=== PATIENT | female | born 1940 | race Caucasian/White ===

== ENCOUNTER → 2017-01-22 | Outpatient (CLI) | payer MEDICARE, OTHER ==
--- NOTE | 2017-01-22 15:34 | REP ---
RIGHT KNEE, FIVE VIEWS: HISTORY: Pain. There is narrowing of the joint spaces. Osteophytes are present on the patella. Calcification is present adjacent to the medial femoral condyle. This represents ligamentous or tendon calcification. IMPRESSION: Degenerative change as described above. Signed by Phu Gudino MD 01/22/2017 03:35 P
== END ==
LOC: M WUC 14:47
PROVIDERS: ATTEND Nurse Practitioner Family
DX: M25.561 Pain in right knee (principal)

== ENCOUNTER → 2017-02-28 | Outpatient (CLI) | payer MEDICARE, OTHER ==
--- NOTE | 2017-02-28 14:12 | REPMRS ---
Patient History The patient states she has not had a clinical breast exam in over a year. Patient is postmenopausal. Family history of colorectal cancer in father at age 67, colorectal cancer in paternal grandfather at age 92, and colorectal cancer in mother at age 73. Benign radio exam breast specimen of the left breast, August 12, 2013. Benign localization of breast nodule of the left breast, August 12, 2013. Benign excisional biopsy of the left breast, 1993. Took hormonal contraceptives for 7 years. Digital Mammo Screening Bilat: February 28, 2017 - Exam #: [id number] Bilateral CC and MLO view(s) were taken. Technologist: Delma Macias, Technologist Prior study comparison: November 08, 2015, bilateral digital mammo screening bilat performed at [facility]. January 20, 2015, left breast digital mammo diagnostic unilateral performed at [facility]. FINDINGS: There are scattered fibroglandular densities. There has been no change in the appearance of the mammogram from the prior studies. There is a mild amount of residual fibroglandular tissue which is fairly symmetric. There is no interval development of dominant mass, architectural distortion, or clustered microcalcification suggestive of malignancy. ASSESSMENT: BI-RADS/ACR category 1 mammogram. Negative. Recommendation Routine screening mammogram in 1 year (for women over age 40). This mammogram was interpreted with the aid of an FDA-approved computer-aided dectection system. Electronically Signed By: Alfredo Whitehead MD 02/28/17 [id number]
== END ==
LOC: M RAD 12:00
PROVIDERS: ATTEND Nurse Practitioner Family
DX: Z12.31 Encounter for screening mammogram for malignant neoplasm of breast (principal)

== ENCOUNTER → 2017-12-08 | Day surgery (SDC) | payer MEDICARE, OTHER ==
[~2017-12-08] MED LIST: LIDOCAINE 2% INJ 100 MG/5 ML SDV (FOR ANES.) As Ordered; NS 1,000 ML IV; PROPOFOL 200 MG/20 ML VIAL As Ordered
== END | disposition home or self-care (01) ==
LOC: M OPP 09:10
DX: Z12.11 Encounter for screening for malignant neoplasm of colon (principal); Z80.0 Family history of malignant neoplasm of digestive organs; K64.0 First degree hemorrhoids; K57.30 Diverticulosis of large intestine without perforation or abscess without bleeding; Z87.891 Personal history of nicotine dependence; Z83.71 Family history of colonic polyps
CPT/HCPCS: G0105

== ENCOUNTER → 2018-11-06 | Outpatient (CLI) | payer MEDICARE, OTHER ==
[~2018-11-06] MED LIST changes: +EXCETAB80 PO; -LIDOCAINE 2% INJ 100 MG/5 ML SDV (FOR ANES.) As Ordered; +MULT1TAB10 PO; -NS 1,000 ML IV; -PROPOFOL 200 MG/20 ML VIAL As Ordered; +VITA100067 PO
--- NOTE | 2018-11-06 14:58 | REPMRS ---
Patient History The patient states she had a clinical breast exam in August 2018. Family history of colorectal cancer at age 73 in mother, colorectal cancer at age 92 in paternal grandfather, colorectal cancer at age 67 in father. Benign radio exam breast specimen of the left breast, August 12, 2013. Benign localization of breast nodule of the left breast, August 12, 2013. Benign excisional biopsy of the left breast, 1993. Took hormonal contraceptives for 7 years. Digital Mammo Screening Bilat: November 06, 2018 - Exam #: [id number] Bilateral CC and MLO view(s) were taken. Technologist: Delma Macias, Technologist Prior study comparison: February 28, 2017, bilateral digital mammo screening bilat performed at [facility]. November 08, 2015, bilateral digital mammo screening bilat performed at [facility]. January 20, 2015, left breast digital mammo diagnostic unilateral performed at [facility]. December 07, 2013, left breast digital mammo diagnostic unilateral performed at [facility]. FINDINGS: There are scattered fibroglandular densities. There has been no change in the appearance of the mammogram from the prior studies. There is a mild amount of scattered fibroglandular density which is fairly symmetric. There is no interval development of dominant mass, architectural distortion, or clustered microcalcification suggestive of malignancy. 3-D tomosynthesis shows no additional findings. Assessment: BI-RADS/ACR category 1 mammogram. Negative. Recommendation Routine screening mammogram of both breasts in 1 year (for women over age 40). This patient's Lifetime Breast Cancer RIsk is estimated at 2.4 %. This mammogram was interpreted with the aid of an FDA-approved computer-aided dectection system. Electronically Signed By: Jd Camara MD 11/06/18 [id number]
== END ==
LOC: M RAD 13:34
PROVIDERS: ATTEND Nurse Practitioner Family
DX: Z12.31 Encounter for screening mammogram for malignant neoplasm of breast (principal)

== ENCOUNTER → 2018-11-09 | Outpatient (CLI) | payer MEDICARE, OTHER ==
--- NOTE | 2018-11-09 15:04 | REP ---
Chest two views HISTORY: The Medical examination Comparison: None The lungs are clear. The heart is normal in size. The pulmonary vasculature is normal in appearance. The bony structure is intact. IMPRESSION: No acute disease. Electronically Signed by Phu Gudino MD 11/09/2018 02:56 P
[2018-11-09 17:00] LABS: BILIRUBIN,TOTAL 0.3 MG/DL (0.2-1.0); CALCIUM LEVEL 9.6 MG/DL (8.8-10.2); CREATININE FOR GFR 0.98 MG/DL (0.55-1.30); GLOMERULAR FILTRATION RATE 58.7 (>39); TOTAL PROTEIN 6.6 GM/DL (6.4-8.2)
[2018-11-09 17:09] LABS: BASO % 0.3 % (0.0-1.0); EOS # 0.1 10^3/uL (0.0-0.50); EOS % 1.2 % (0.0-3.0); HEMATOCRIT 41.6 % (36.0-47.0); HEMOGLOBIN 13.7 g/dl (12.0-15.5); LYMPH # 3.7 10^3/uL (1.5-4.5); MEAN CORPUSCULAR HEMOGLOBIN 31.3 pg (27.0-33.0); MEAN CORPUSCULAR HGB CONC 32.9 g/dl (32.0-36.5); MONO # 0.7 10^3/uL (0.0-0.8); MONO % 7.5 % (0.0-5.0); NEUTROPHILS # 4.5 10^3/uL (1.8-7.7); NEUTROPHILS % 49.8 % (36.0-66.0); PLATELET COUNT, AUTOMATED 304 10^3/uL (150-450); RED BLOOD COUNT 4.38 10^6/uL (4.00-5.40); WHITE BLOOD COUNT 9.1 10^3/uL (4.0-10.0)
== END ==
LOC: M WUC 13:46
PROVIDERS: ATTEND Nurse Practitioner Family
DX: Z00.00 Encounter for general adult medical examination without abnormal findings (principal)

== ENCOUNTER → 2020-01-06 | Outpatient (CLI) | payer MEDICARE, OTHER ==
--- NOTE | 2020-01-11 15:07 | DEXA ---
AP SPINE L1 - L4 1.089 -0.8 0.9 LT FEMUR TOTAL 0.895 -0.9 1.0 LT NECK 0.853 -1.3 0.7 RT FEMUR TOTAL 0.940 -0.5 1.3 RT NECK 0.894 -1.0 1.0 TOTAL BODY TOTAL OTHER COMMENTS: Normal bone densitometry of the spine. There is low bone density of the hips. The density of the spine is increased 15.7% since the initial exam on 12/28/2001. The spine density has increased 7.9% since the most recent exam on 06/29/2013. The density of the left hip has decreased 2.4% since the initial exam on 12/28/2001. The density of the left hip has decreased 5.7% since the most recent exam on 06/29/2013. The density of the right hip has increased 3.1% since the initial exam on 12/28/2001. The density of the right hip has decreased 3.5% since the most recent exam on 06/29/2013. FOLLOW-UP: Recommendation for the next bone density exam: 2 years. MARTHA
== END ==
LOC: M WHC 11:17
PROVIDERS: ATTEND Family Medicine
DX: M85.88 Other specified disorders of bone density and structure, other site (principal)

== ENCOUNTER → 2020-04-28 | Outpatient (REF) | payer MEDICARE, OTHER ==
[~2020-04-28] MED LIST changes: +DOCU100C16 PO; +FERR325T3 PO; +PERCOCET PO; +PROT1TAB2 PO; +SUCR1SS PO
== END ==
LOC: M LAB REF 12:09
PROVIDERS: ATTEND Nurse Practitioner Family
DX: R30.0 Dysuria (principal)

== ENCOUNTER 2020-04-30 15:15 | Emergency (ER) | payer MEDICARE, OTHER ==
[~2020-04-30] VITALS: Ht 152.4 cm; Wt 63.4 kg
[~2020-04-30 15:15] MED LIST changes: -PROT1TAB2 PO; -SUCR1SS PO
[2020-04-30] MEDS ORDERED: NS 1,000 ML IV SCH (15:33)
[2020-04-30] MEDS ORDERED: METOCLOPRAMIDE INJ 10MG/2ML VIAL (J2765 PER 1) IV ONE (15:45)
[2020-04-30] MEDS ORDERED: ISOVUE-370 76% 100ML VIAL As Ordered ONE (15:54)
[2020-04-30 15:56] LABS: BASO % 0.2 % (0.0-1.0); EOS % 0.1 % (0.0-3.0); HEMATOCRIT 34.4 % (36.0-47.0); HEMOGLOBIN 11.2 g/dl (12.0-15.5); LYMPH # 1.7 10^3/uL (1.5-5.0); LYMPH % 18.4 % (24.0-44.0); MEAN CORPUSCULAR HGB CONC 32.6 g/dl (32.0-36.5); MEAN CORPUSCULAR VOLUME 95.3 fl (80.0-96.0); MONO # 0.5 10^3/uL (0.0-0.8); MONO % 5.3 % (0.0-5.0); NEUTROPHILS # 7.1 10^3/uL (1.5-8.5); NEUTROPHILS % 75.7 % (36.0-66.0); PLATELET COUNT, AUTOMATED 437 10^3/uL (150-450); RED BLOOD COUNT 3.61 10^6/uL (4.00-5.40); WHITE BLOOD COUNT 9.4 10^3/uL (4.0-10.0)
--- NOTE | 2020-04-30 16:20 | REP ---
Clinical: Abdominal pain. Technique: Axial contrast enhanced images from the lung bases to the pubic symphysis with coronal and sagittal re-formations using 100 ml Isovue 370 intravenous contrast material. Findings: Lung bases are clear. Visualized heart and pericardium normal. Liver, spleen, pancreas, gallbladder, and bilateral adrenal glands are normal. Kidneys demonstrate age-related cortical thinning along with bilateral simple cysts. There is a round lesion along the posterior cortex of the right kidney measuring 2.3 cm diameter and displaying soft tissue density suspicious for mass versus proteinaceous cyst. Mucosal thickening involving the duodenum with subtle surrounding fatty infiltration suggests duodenitis and correlation is recommended. Remainder of the small and large bowel is without obstruction or acute inflammatory process. No free air. No free fluid. Pelvis demonstrates normal bladder and age-appropriate uterus/adnexa. No ascites. No adenopathy. Abdominal aorta without aneurysm or dissection. Musculoskeletal structures are intact. Impression: 1. Findings suggesting duodenitis and correlation is recommended. 2. Bilateral renal cysts. 3. 2.3 cm soft tissue dense right renal lesion. Differential diagnosis includes complex proteinaceous cyst and mass. Correlation with ultrasound may be warranted. Electronically Signed by Conrad Emanuel MD 04/30/2020 04:12 P
[2020-04-30 16:22] LABS: ALT/SGPT 19 U/L (12-78); BILIRUBIN,DIRECT < 0.1 MG/DL (0.0-0.2); BILIRUBIN,TOTAL 0.3 MG/DL (0.2-1.0); LIPASE 185 U/L (73-393); TOTAL PROTEIN 7.1 GM/DL (6.4-8.2)
[2020-04-30] MEDS ORDERED: PROT1TAB2 PO (16:29)
[2020-04-30] MEDS ORDERED: SUCR1SS PO (16:29)
[2020-04-30] MEDS ORDERED: PANTOPRAZOLE 40MG VIAL (C9113 PER 1) IV ONE (16:30)
[2020-04-30] MEDS ORDERED: SUCRALFATE SUSP 1GM/10ML UD PO ONE (16:30)
[2020-04-30 17:22] VITALS: BP 168/77
--- NOTE | 2020-05-01 08:21 | ECGEPIP ---
[facility] - ED Test Date: 2020-04-30 Pat Name: BELEN DARBY Department: Room: - Gender: Female Feather Baler: RADHA : 1940 Requested By: Samantha Linn Order Number: [id number] Reading MD: Elder Wallace Measurements Intervals [place] Rate: 81 P: 79 [place]: 142 QRS: 36 QRSD: 93 T: 40 QT: 378 QTc: 439 Interpretive Statements SINUS RHYTHM WITH SINUS ARRHYTHMIA NO PRIORS FOR COMPARISON Electronically Signed on 05-01-2020 8:21:23 EDT by Elder Wallace
--- NOTE | 2020-06-29 07:38 | ED PDOC ---
Post-Departure Follow-Up radiology report faxed to Samantha Alfaro MD Jun 29, 2020 07:38
== END 2020-04-30 18:03 | disposition home or self-care (01) ==
LOC: M ED 15:15
DX: K29.80 Duodenitis without bleeding (principal); N28.9 Disorder of kidney and ureter, unspecified; I10 Essential (primary) hypertension; E78.5 Hyperlipidemia, unspecified; Z79.899 Other long term (current) drug therapy; Z80.0 Family history of malignant neoplasm of digestive organs; Z87.891 Personal history of nicotine dependence
CPT/HCPCS: 36415; 74021; 74177; 80047; 80053; 83690; 85025; 93005; 96361; 96374; 96375; 99284; C9113; J2765; Q9967

== ENCOUNTER → 2020-04-30 | Outpatient (CLI) | payer MEDICARE, OTHER ==
[~2020-04-30] MED LIST changes: -DOCU100C16 PO; -FERR325T3 PO; -PERCOCET PO
--- NOTE | 2020-04-30 15:08 | REP ---
Clinical: Epigastric and abdominal pain. Technique: Upright view of the chest with supine and upright views of the abdomen and pelvis. Findings: Frontal upright view of the chest demonstrates no acute cardiopulmonary process or free air below the diaphragm to suspect pneumoperitoneum. Supine and upright views of the abdomen and pelvis demonstrate nonspecific bowel gas pattern without obstruction or perforation. No organomegaly. Skeletal structures normal for age. Impression: Nonspecific bowel gas pattern. Electronically Signed by Conrad Emanuel MD 04/30/2020 02:59 P
[2020-04-30 17:26] LABS: BASO % 0.2 % (0.0-1.0); EOS % 0.2 % (0.0-3.0); HEMATOCRIT 35.3 % (36.0-47.0); HEMOGLOBIN 11.4 g/dl (12.0-15.5); LYMPH # 2.7 10^3/uL (1.5-5.0); LYMPH % 23.7 % (24.0-44.0); MEAN CORPUSCULAR HEMOGLOBIN 31.5 pg (27.0-33.0); MEAN CORPUSCULAR HGB CONC 32.3 g/dl (32.0-36.5); MEAN CORPUSCULAR VOLUME 97.5 fl (80.0-96.0); MONO # 0.7 10^3/uL (0.0-0.8); MONO % 5.8 % (0.0-5.0); NEUTROPHILS % 69.9 % (36.0-66.0); PLATELET COUNT, AUTOMATED 507 10^3/uL (150-450); RED BLOOD COUNT 3.62 10^6/uL (4.00-5.40); WHITE BLOOD COUNT 11.4 10^3/uL (4.0-10.0)
[2020-04-30 17:34] LABS: ALBUMIN 4.2 GM/DL (3.2-5.2); ALT/SGPT 19 U/L (12-78); BILIRUBIN,TOTAL 0.3 MG/DL (0.2-1.0); BLOOD UREA NITROGEN 8 MG/DL (7-18); CALCIUM LEVEL 9.8 MG/DL (8.8-10.2); CARBON DIOXIDE LEVEL 28 MEQ/L (21-32); CHLORIDE LEVEL 102 MEQ/L (98-107); CREATININE FOR GFR 0.94 MG/DL (0.55-1.30); GLOMERULAR FILTRATION RATE > 60.0 (>39); GLUCOSE, FASTING 125 MG/DL (70-100); POTASSIUM SERUM 3.9 MEQ/L (3.5-5.1); SODIUM LEVEL 135 MEQ/L (136-145); TOTAL PROTEIN 7.4 GM/DL (6.4-8.2)
== END ==
LOC: M WUC 14:30
PROVIDERS: ATTEND Physician Assistant
DX: K59.00 Constipation, unspecified (principal); R11.2 Nausea with vomiting, unspecified

== ENCOUNTER → 2020-05-23 | Outpatient (CLI) | payer MEDICARE, OTHER ==
[~2020-05-23] MED LIST changes: +DOCU100C16 PO; +FERR325T3 PO; +PERCOCET PO; +PROT1TAB2 PO; +SUCR1SS PO
--- NOTE | 2020-07-14 14:45 | REP ---
URINARY TRACT SONOGRAPHY: HISTORY: Renal lesion seen on CT. COMPARISON: No comparison imaging is available. FINDINGS: Renal cortical echogenicity pattern is normal. There is mild bilateral hydronephrosis. Mild proximal hydroureter is seen on the left. There is no evidence of intrarenal calculus. There is a 6.6 x 3.8 x 3.9 cm cyst in the lower pole of the left kidney. The left kidney measures 10.9 x 5.7 x 4.0 cm exclusive of this. Right renal dimensions are 9.3 x 4.9 x 4.0 cm. There is a peripheral hypoechoic mass projecting from the upper pole of the right kidney anteriorly measuring 2.4 x 2.1 x 1.5 cm, which must be considered suspicious. IMPRESSION: 6.6 cm cyst lower pole left kidney. Mild bilateral hydronephrosis. There is a 2.4 cm solid hypoechoic peripheral mass in the upper pole of the right kidney suspicious for renal cell carcinoma. MTDD
== END ==
LOC: M PLAIMG 06:44
PROVIDERS: ATTEND Nurse Practitioner Family
DX: N28.1 Cyst of kidney, acquired (principal)

== ENCOUNTER → 2020-06-07 | Outpatient (CLI) | payer MEDICARE, OTHER ==
[2020-07-10 11:38] LABS: HEMATOCRIT 34.3 % (36.0-47.0); HEMOGLOBIN 10.6 g/dl (12.0-15.5); MEAN CORPUSCULAR HEMOGLOBIN 29.6 pg (27.0-33.0); MEAN CORPUSCULAR HGB CONC 30.9 g/dl (32.0-36.5); MEAN CORPUSCULAR VOLUME 95.8 fl (80.0-96.0); PLATELET COUNT, AUTOMATED 332 10^3/uL (150-450); RED BLOOD COUNT 3.58 10^6/uL (4.00-5.40); WHITE BLOOD COUNT 7.1 10^3/uL (4.0-10.0)
[2020-07-10 11:43] LABS: INR 0.93; PARTIAL THROMBOPLASTIN TIME 28.7 SECONDS (25.0-38.4); PROTHROMBIN TIME 12.7 SECONDS (11.8-14.0)
--- NOTE | 2020-07-21 07:57 | REP ---
CHEST TWO VIEWS HISTORY: Renal mass. COMPARISON: 11/09/2018. TECHNIQUE: Two views of the chest were performed and compared to prior study of 11/09/2018. FINDINGS: There is no acute infiltrate. Lungs are clear and unchanged. Heart is normal in size. There is some tortuosity of the thoracic aorta. Mediastinal silhouette is unchanged. There are mild degenerative changes of the spine. IMPRESSION: No active pulmonary disease. MTDD
[2020-07-23 11:00] LABS: BLOOD UREA NITROGEN 17 MG/DL (7-18); CALCIUM LEVEL 9.1 MG/DL (8.8-10.2); CARBON DIOXIDE LEVEL 25 MEQ/L (21-32); CHLORIDE LEVEL 114 MEQ/L (98-107); CREATININE FOR GFR 0.86 MG/DL (0.55-1.30); GLOMERULAR FILTRATION RATE > 60.0 (>39); GLUCOSE, FASTING 94 MG/DL (70-100); POTASSIUM SERUM 4.3 MEQ/L (3.5-5.1); SODIUM LEVEL 144 MEQ/L (136-145)
== END ==
LOC: M RAD 09:24
PROVIDERS: ATTEND Nurse Practitioner Family
DX: Z01.818 Encounter for other preprocedural examination (principal); N28.9 Disorder of kidney and ureter, unspecified; Z79.899 Other long term (current) drug therapy

== ENCOUNTER → 2020-06-15 | Outpatient (CLI) | payer MEDICARE, OTHER | LOC: M LABSMTC 10:40 | PROVIDERS: ATTEND Anesthesiology | DX: Z01.812 Encounter for preprocedural laboratory examination (principal); Z20.828 Contact with and (suspected) exposure to other viral communicable diseases ==

== ENCOUNTER 2020-06-20 11:09 | Inpatient (IN) | payer MEDICARE, OTHER ==
[~2020-06-20] VITALS: Ht 152.4 cm; Wt 63.0 kg
[~2020-06-20 11:09] MED LIST changes: -DOCU100C16 PO; -FERR325T3 PO; +HYDROmorphone HCL 2 MG/ML 1ML VIAL (J1170) As Ordered ONE; +LIDOCAINE 2% 100MG/5ML SDV (FOR ANES.) As Ordered ONE; +MIDAZOLAM INJ 2MG/2ML VIAL (J2250 PER 1MG) As Ordered ONE; +ONDANSETRON 4MG/2ML VIAL As Ordered ONE; -PERCOCET PO; +ROCURONIUM BROMIDE 50 MG/5 ML VIAL As Ordered ONE; +dexameTHASONE 4 MG/ML 1ML VIAL (J1100 PER 1MG) As Ordered ONE; +fentaNYL 100 MCG/2 ML INJECTION (J3010) As Ordered ONE; +propofoL 200 MG/20 ML VIAL As Ordered ONE
[2020-06-20] MEDS ORDERED: ceFAZolin 2 GM/D5W 50 ML IV BAG (J0690 PER 500MG) As Ordered ONE (11:22)
[2020-06-20] MEDS ORDERED: BUPIVACAINE HCL 0.25% 30ML VIAL As Ordered ONE (12:37)
[2020-06-20] MEDS ORDERED: LIDOCAINE 1% SDV 30ML VIAL As Ordered ONE (12:37)
[2020-06-20] MEDS ORDERED: PHENYLephrine HCL 500 MCG/5 ML (100MCG/ML) SYRINGE (J2370) As Ordered ONE (13:23)
[2020-06-20] MEDS ORDERED: ACETAMINOPHEN 1000MG 100ML IV BTL (OFIRMEV) (J0131 PER 10MG) As Ordered ONE (13:25)
[2020-06-20] MEDS ORDERED: ROCURONIUM BROMIDE 50 MG/5 ML VIAL As Ordered ONE ×2 (13:44→14:42)
[2020-06-20] MEDS ORDERED: ceFAZolin 2 GM/D5W 50 ML IV BAG (J0690 PER 500MG) IV ONE (13:50)
[2020-06-20] MEDS ORDERED: MANNITOL 25% 12.5 GM/50 ML VIAL (J2150) As Ordered ONE (13:57)
[2020-06-20] MEDS ORDERED: SUGAMMADEX SODIUM 500 MG/5 ML VIAL (BRIDION) As Ordered ONE (15:58)
[2020-06-20] MEDS: oxyCODONE 5MG TAB PO PRN ×2 (16:57→17:40)
[2020-06-20] MEDS: fentaNYL 100 MCG/2 ML INJECTION (J3010) IV PRN ×4 (16:57→17:14)
[2020-06-20] MEDS ORDERED: oxyCODONE 5MG TAB As Ordered ONE (16:58)
[2020-06-20] MEDS ORDERED: ONDANSETRON 4MG/2ML VIAL As Ordered ONE ×2 (16:58→20:05)
[2020-06-20] MEDS ORDERED: fentaNYL 100 MCG/2 ML INJECTION (J3010) As Ordered ONE (16:58)
[2020-06-20] MEDS ORDERED: NS 1,000 ML IV SCH (17:00)
[2020-06-20] MEDS ORDERED: LR 1,000 ML IV SCH (17:00)
[2020-06-20] MEDS ORDERED: ONDANSETRON 4MG/2ML VIAL IV PRN (17:00)
[2020-06-20] MEDS ORDERED: ACETAMINOPHEN TAB 650MG DOSE (2X325MG) PO PRN (17:00)
[2020-06-20] MEDS ORDERED: PERCOCET 5MG/325MG TAB PO PRN (17:00)
[2020-06-20] MEDS ORDERED: HYDROMORPHONE HCL 0.5 MG/ 0.5 ML SYRINGE (J1170 PER 1) As Ordered ONE ×2 (17:16→17:32)
[2020-06-20] MEDS: HYDROMORPHONE HCL 0.5 MG/ 0.5 ML SYRINGE (J1170 PER 1) IV PRN ×4 (17:16→17:38)
--- NOTE | 2020-06-20 17:43 | ROOPDOC ---
[facility] Report Of Operation Report of Operation DATE OF PROCEDURE: 06/20/20 PREPROCEDURE DIAGNOSES: Right Renal Neoplasm. POSTPROCEDURE DIAGNOSES: Right Renal Neoplasm. PROCEDURE: Right Robotic-assisted Laparoscopic Partial Nephrectomy with Intraoperative Ultrasound for Tumor Mapping. SURGEON: Eran Mac MD CHEESE COOK: Alysa Quinn NP ANESTHESIA: General OPERATIVE INDICATIONS: This is a 79 year old female with a 2.5cm enhancing solid right renal neoplasm concerning for malignancy. She was brought to the operating room today for treatment. DESCRIPTION OF PROCEDURE: The patient was brought to the operating room and general anesthesia was induced. Prophylactic antibiotics were infused. A Martin catheter was placed under sterile conditions. The patient was then placed in the left lateral decubitus position. All pressure points were appropriately padded and an axillary roll was placed. She was secured to the table with tape. The patient was then prepped and draped in the usual sterile fashion. The initial incision was for an 8mm port in line with the 11th rib along the lateral rectus margin. A Veress needle was then utilized to achieve the pneumoperitoneum. An 8mm port was then placed in through this incision and through which the camera was inserted. There were no injuries from Veress needle placement or initial trocar placement. The remaining ports were then placed under vision. The right hand robotic port was placed along the costal margin in line with the camera port. A 5 mm port was placed just inferior to the xyphoid for access for a liver retractor. Two left robotic ports were placed with one just inferior to the camera port, and the other between the anterior-superior iliac spine and the umbilicus. A 12mm assistant laboratory director port was placed in between the camera port and the more cephalad left hand robotic port. The robot was then docked. We started by lifting up the liver with a laparoscopic locking Allis clamp. The patient's liver was very large and completely covered the kidney. A moderate amount of adhesions were released between the liver and Gerota's fascia prior to us being able to retract the l iver. Once done the IVC was readily seen. A plane was made onto the lateral aspect of the IVC and this was carried cephalad until the right renal vein was encountered. This was carefully dissected and just inferior to the renal vein, the right renal artery was identified. It was then carefully dissected. Next I had our locomotive observer administer 12.5g of mannitol. Gerota's fascia was then opened and I defatted the kidney. On the lateral and mid aspect of the kidney the tumor was seen. It was mostly exophytic. Ultrasound was then utilized to evangelina the boundaries of the mass. Next 2 bulldog clamps were placed on the renal artery and we began resecting the mass. The mass was resected completely and it appeared that we had a good margin. Once the mass was removed, the renorrhaphy was performed first by ligating all vessels in the base of resection with 2-0 vicryl sutures using figure of eight stitches. The capsule of the kidney was then reapproximated using 0-vicryl suture with Weck clips to cinch down the suture. Once this was done the clamps were removed and hemostasis was excellent. The warm ischemia time was 28 minutes. Next Radha was applied to the resection bed and the tumor was placed in an endocatch bag. A Chris Newman drain was positioned just medial to the kidney. The liver retractor was then removed and the robot was undocked after confirming hemostasis within the abdomen. The assi stant port was then extended at the skin level and then at the fascia. The specimen was then removed in the endocatch bag. A Gaurav-Marychuy fascial closure device was utilized to place #0 Vicryl free ties through the fascia of the assistant laboratory director port site. This suture was then tied down. At this point, the abdomen was reinsufflated and we looked back in with the camera and there was no bleeding. At this point, all the incisions were thoroughly irrigated. We then closed the skin of each site using a running #4-0 subcuticular Monocryl stitch. The Chris Newman drain was secured to the skin using #3-0 Ethilon suture. Local anesthetic was then applied to each incision and Dermabond was then applied and this marked the conclusion of the procedure. The patient was then taken out of the left lateral decubitus position, awakened from anesthesia and transported to the recovery room in stable condition. ESTIMATED BLOOD LOSS: 350mL INTRAOPERATIVE COMPLICATIONS: None SPECIMENS: Right renal neoplasm WARM ISCHEMIA TIME: 28 minutes NORMAL RIGHT RENAL PARENCHYMA SPARED: 95% PLAN: The patient will be admitted to the hospital postoperatively and she will be discharged home once her renal function is stable and she is tolerating a regular diet. ERAN MAC MD Jun 20, 2020 17:43
[2020-06-20 19:16] LABS: HEMATOCRIT 29.3 % (36.0-47.0); HEMOGLOBIN 9.2 g/dl (12.0-15.5); MEAN CORPUSCULAR HEMOGLOBIN 28.5 pg (27.0-33.0); MEAN CORPUSCULAR HGB CONC 31.4 g/dl (32.0-36.5); MEAN CORPUSCULAR VOLUME 90.7 fl (80.0-96.0); PLATELET COUNT, AUTOMATED 299 10^3/uL (150-450); RED BLOOD COUNT 3.23 10^6/uL (4.00-5.40); WHITE BLOOD COUNT 11.9 10^3/uL (4.0-10.0)
[2020-06-20 19:49] LABS: BLOOD UREA NITROGEN 14 MG/DL (7-18); CALCIUM LEVEL 8.5 MG/DL (8.8-10.2); CARBON DIOXIDE LEVEL 24 MEQ/L (21-32); CHLORIDE LEVEL 113 MEQ/L (98-107); CREATININE FOR GFR 0.83 MG/DL (0.55-1.30); GLOMERULAR FILTRATION RATE > 60.0 (>39); GLUCOSE, FASTING 166 MG/DL (70-100); POTASSIUM SERUM 3.8 MEQ/L (3.5-5.1); SODIUM LEVEL 144 MEQ/L (136-145)
[2020-06-20] MEDS: ONDANSETRON 4MG/2ML VIAL IV PRN (20:01)
[2020-06-20 20:15] VITALS: BP 122/61
[2020-06-20 20:45] VITALS: BP 122/62
[2020-06-20] MEDS: DOCUSATE SODIUM 100 MG CAP PO SCH (20:57)
[2020-06-20] MEDS: ceFAZolin SOD 1 GM in D5W MINI-BAG PLUS 50 ML IV SCH (20:58)
[2020-06-20 21:45] VITALS: BP 123/63
[2020-06-20 22:15] VITALS: BP 110/68
[2020-06-20] MEDS: MORPHINE 2 MG/ML 1ML VIAL (J2270) IV PRN (23:35)
[2020-06-21 00:15] VITALS: BP 118/64
[2020-06-21] MEDS: PERCOCET 5MG/325MG TAB PO PRN ×5 (01:23→21:17)
[2020-06-21] MEDS: ceFAZolin SOD 1 GM in D5W MINI-BAG PLUS 50 ML IV SCH (04:29)
[2020-06-21 06:00] VITALS: BP 119/60
[2020-06-21 07:45] LABS: HEMATOCRIT 26.5 % (36.0-47.0); HEMOGLOBIN 8.1 g/dl (12.0-15.5); MEAN CORPUSCULAR HEMOGLOBIN 27.9 pg (27.0-33.0); MEAN CORPUSCULAR HGB CONC 30.6 g/dl (32.0-36.5); MEAN CORPUSCULAR VOLUME 91.4 fl (80.0-96.0); PLATELET COUNT, AUTOMATED 258 10^3/uL (150-450); WHITE BLOOD COUNT 9.9 10^3/uL (4.0-10.0)
[2020-06-21] MEDS: ONDANSETRON 4MG/2ML VIAL IV PRN (07:54)
[2020-06-21 08:02] LABS: CALCIUM LEVEL 8.1 MG/DL (8.8-10.2); CREATININE FOR GFR 1.01 MG/DL (0.55-1.30); GLOMERULAR FILTRATION RATE 56.6 (>39); POTASSIUM SERUM 4.3 MEQ/L (3.5-5.1)
--- NOTE | 2020-06-21 08:38 | IPNPDOC ---
Subjective Review oF Systems Chief Complaint The patient is a 79-year-old female admitted with a reason for visit of Renal Mass. Events since Last Encounter No acute events o/n. Good pain control. Patient having some nausea this morning but no emesis. Has not ambulated yet. No f/c/ns. Objective Physical Examination General Exam: Alert, Cooperative, No Acute Distress ABDOMEN EXAM: Soft, Tenderness (mild), Other (incisions clean/dry/intact; BENEDICT w/ serosanguinous output) Skin Exam: Nl turgor and temperature Neuro Exam: Normal Speech Psych Exam: Mental status NL, Mood NL Other physical findings catheter draining clear urine Vital Signs/I&O Vital Signs Date Time Temp Pulse Resp B/P (MAP) Pulse Ox O2 Delivery O2 Flow Rate FiO2 06/21/20 06:29 17 98 Nasal Cannula 1.0 06/21/20 06:00 98.5 79 119/60 (79) I&O- Last 24 Hours up to 6 AM 06/21/20 06:00 Intake Total 2670 ml Output Total 1360 ml Balance 1310 ml Laboratory Data Labs 24H Laboratory Tests 2 06/20/20 15:07: Nucleated Red Blood Cells % (auto) 0.0, Anion Gap 7L, Glomerular Filtration Rate > 60.0, Calcium Level 8.5L 06/21/20 06:39: Nucleated Red Blood Cells % (auto) 0.0, Anion Gap 5L, Glomerular Filtration Rate 56.6, Calcium Level 8.1L CBC/BMP Laboratory Tests 06/20/20 15:07 06/21/20 06:39 Assessment/Plan Date Seen The patient was seen on 06/21/20. Patient Summary This is a 79 y/o F POD1 s/p R robotic partial nephrectomy. Doing well. Hb 8.1. Cr 1. Good UOP. Normal BENEDICT output. Plan/VTE VTE Prophylaxis Ordered?: Yes VTE Exclusion Mechanical Proph: N/A:VTE Prophy Ordered Plan/Urinary Catheter Urinary Catheter: D/C Martin Plan - d/c Martin once patient is ambulating - d/c IVF once nausea improved - zofran prn nausea - strict I/Os - percocet prn pain - recheck Hb at noon - may need PRBC transfusion if Hb drops into 7s (patient was anemic at baseline) - SCDs when in bed - ambulate as tolerated - incentive spirometry - advance diet as tolerated - anticipate discharge tomorrow ERAN MAC MD Jun 21, 2020 08:38
[2020-06-21] MEDS: DOCUSATE SODIUM 100 MG CAP PO SCH ×2 (09:33→21:16)
[2020-06-21] MEDS: MORPHINE 2 MG/ML 1ML VIAL (J2270) IV PRN (09:34)
[2020-06-21 10:00] VITALS: BP 124/63
[2020-06-21 14:00] VITALS: BP 124/63
[2020-06-21 18:00] VITALS: BP 130/70
[2020-06-21 22:00] VITALS: BP 149/79
[2020-06-22 02:00] VITALS: BP 153/81
[2020-06-22] MEDS: PERCOCET 5MG/325MG TAB PO PRN ×3 (02:29→15:50)
[2020-06-22 06:00] VITALS: BP 141/63
[2020-06-22 06:22] LABS: HEMATOCRIT 28.1 % (36.0-47.0); HEMOGLOBIN 8.6 g/dl (12.0-15.5); MEAN CORPUSCULAR HGB CONC 30.6 g/dl (32.0-36.5); MEAN CORPUSCULAR VOLUME 91.5 fl (80.0-96.0); PLATELET COUNT, AUTOMATED 238 10^3/uL (150-450); RED BLOOD COUNT 3.07 10^6/uL (4.00-5.40); WHITE BLOOD COUNT 10.4 10^3/uL (4.0-10.0)
[2020-06-22 06:51] LABS: BLOOD UREA NITROGEN 9 MG/DL (7-18); CALCIUM LEVEL 8.6 MG/DL (8.8-10.2); CARBON DIOXIDE LEVEL 28 MEQ/L (21-32); CHLORIDE LEVEL 112 MEQ/L (98-107); CREATININE FOR GFR 0.94 MG/DL (0.55-1.30); GLOMERULAR FILTRATION RATE > 60.0 (>39); GLUCOSE, FASTING 105 MG/DL (70-100); POTASSIUM SERUM 4.1 MEQ/L (3.5-5.1); SODIUM LEVEL 144 MEQ/L (136-145)
[2020-06-22] MEDS: DOCUSATE SODIUM 100 MG CAP PO SCH (09:15)
--- NOTE | 2020-06-22 09:43 | IPNPDOC ---
Subjective Review oF Systems Chief Complaint The patient is a 79-year-old female admitted with a reason for visit of Renal Mass. Events since Last Encounter No acute events o/n. Pain much better controlled today. No n/v today. A mbulating ok. No difficulty voiding. No f/c/ns. Objective Physical Examination General Exam: Alert, Cooperative, No Acute Distress ABDOMEN EXAM: Soft, Tenderness (mild), Other (incisions clean/dry/intact; BENEDICT w/ serous output) Skin Exam: Nl turgor and temperature Neuro Exam: Normal Speech Psych Exam: Mental status NL, Mood NL Vital Signs/I&O Vital Signs Date Time Temp Pulse Resp B/P (MAP) Pulse Ox O2 Delivery O2 Flow Rate FiO2 06/22/20 09:17 18 Room Air 06/22/20 06:00 98.5 84 141/63 (89) 94 1.0 I&O- Last 24 Hours up to 6 AM 06/22/20 06:00 Intake Total 1315 ml Output Total 1078 ml Balance 237 ml Laboratory Data Labs 24H Laboratory Tests 2 06/22/20 05:56: Nucleated Red Blood Cells % (auto) 0.0, Anion Gap 4L, Glomerular Filtration Rate > 60.0, Calcium Level 8.6L CBC/BMP Laboratory Tests 06/21/20 11:43 06/22/20 05:56 Assessment/Plan Date Seen The patient was seen on 06/22/20. Patient Summary This is a 79 y/o F POD2 s/p R robotic partial nephrectomy. Doing well. Hb stable at 8.6. Cr 0.9. Good UOP. Normal BENEDICT output. Plan/VTE VTE Prophylaxis Ordered?: Yes VTE Exclusion Mechanical Proph: N/A:VTE Prophy Ordered Plan - wean O2 as tolerated - percocet prn pain - ambulate - SCDs when in bed - incentive spirometry - d/c BENEDICT drain - likely discharge home once weaned off O2 ERAN MAC MD Jun 22, 2020 09:43
[2020-06-22 10:00] VITALS: BP 145/70
[2020-06-22] MEDS ORDERED: FERR325T3 PO (10:09)
[2020-06-22] MEDS ORDERED: PERCOCET PO (10:09)
[2020-06-22] MEDS ORDERED: DOCU100C16 PO (10:09)
[2020-06-22 14:00] VITALS: BP 152/73
--- NOTE | 2020-07-11 12:10 | DSES ---
DATE OF ADMISSION: June 20, 2020 DATE OF DISCHARGE: June 22, 2020 ADMISSION DIAGNOSIS: Right renal neoplasm. DISCHARGE DIAGNOSIS: Right renal cell carcinoma. ADMITTING PHYSICIAN: Blaine De La Garza MD DISCHARGE PHYSICIAN: Blaine De La Garza MD PROCEDURES PERFORMED: Right robotic partial nephrectomy on June 20, 2020. HISTORY OF PRESENT ILLNESS: This is a 79-year-old female who was found to have an enhancing 2.5-cm right renal neoplasm concerning for cancer. She underwent the above listed procedure and was admitted postoperatively. HOSPITALIZATION COURSE: The patient was admitted to the hospital on June 20, 2020 after undergoing the above listed procedure. Her procedure went without any complications. On post op day 1, the patient noted a moderate amount of incisional pain and had nausea and small amounts of vomiting. This improved throughout the day on post op day 1. Her hemoglobin in the morning on post op day 1 had gone down to 8.1 and this was rechecked later that afternoon, and it had gone up some to 8.6. Her vital signs remained stable on post op day 1. Her catheter was removed on post op day 1 and she voided without difficulty. Her serum creatinine on post op day 1 was 1.01. By post op day 2, her pain was much better controlled. She was ambulating better. Her hemoglobin was stable and was 8.6. Her serum creatinine came down to 0.9. She had very good urine output. Of note, there was some difficulty weaning her off of supplemental oxygen. Specifically, when she was starting ambulating, her oxygen saturation would drop into the 80s. This improved on post op day 2. As of post op day 2, her oxygen saturation remained stable in the low 90s on room air while ambulating. At no point was she symptomatic. Since she was doing better on post op day 2, she was deemed ready for discharge to home. Her Chris-Newman drain had normal output and, therefore it was removed on post op day 2. She was discharged to home with a plan for her to follow up in the Urology Clinic in 1-2 weeks for postoperative visit and to discuss her pathology results. MARTHA
== END 2020-06-22 18:15 | disposition home or self-care (01) | DRG 658 ==
LOC: M SDC 11:09 → M MSPAV 20:02 → M SDC 06-21 14:54 → M MSPAV 06-21 14:55 → M SDC 06-22 18:15 → M MSPAV 06-22 18:15
PROVIDERS: ADMIT Urology; ATTEND Urology
PROC: 8E0W4CZ Robotic Assisted Procedure of Trunk Region, Percutaneous Endoscopic Approach (ICD-10-PCS; 2020-06-20)
PROC: 0TB04ZZ Excision of Right Kidney, Percutaneous Endoscopic Approach (ICD-10-PCS; principal; 2020-06-20 13:15)
DX: C64.1 Malignant neoplasm of right kidney, except renal pelvis (principal); R11.10 Vomiting, unspecified; E78.00 Pure hypercholesterolemia, unspecified; Z87.891 Personal history of nicotine dependence; Z85.828 Personal history of other malignant neoplasm of skin; Z79.899 Other long term (current) drug therapy

== ENCOUNTER → 2020-07-11 | Outpatient (CLI) | payer MEDICARE, OTHER ==
[~2020-07-11] MED LIST changes: +DOCU100C16 PO; +FERR325T3 PO; -HYDROmorphone HCL 2 MG/ML 1ML VIAL (J1170) As Ordered ONE; -LIDOCAINE 2% 100MG/5ML SDV (FOR ANES.) As Ordered ONE; -MIDAZOLAM INJ 2MG/2ML VIAL (J2250 PER 1MG) As Ordered ONE; -ONDANSETRON 4MG/2ML VIAL As Ordered ONE; +PERCOCET PO; -ROCURONIUM BROMIDE 50 MG/5 ML VIAL As Ordered ONE; -dexameTHASONE 4 MG/ML 1ML VIAL (J1100 PER 1MG) As Ordered ONE; -fentaNYL 100 MCG/2 ML INJECTION (J3010) As Ordered ONE; -propofoL 200 MG/20 ML VIAL As Ordered ONE
[2020-07-11 13:19] LABS: BLOOD UREA NITROGEN 18 MG/DL (7-18); CALCIUM LEVEL 9.8 MG/DL (8.8-10.2); CARBON DIOXIDE LEVEL 27 MEQ/L (21-32); CHLORIDE LEVEL 111 MEQ/L (98-107); CREATININE FOR GFR 0.95 MG/DL (0.55-1.30); GLOMERULAR FILTRATION RATE > 60.0 (>39); GLUCOSE, FASTING 110 MG/DL (70-100); POTASSIUM SERUM 4.5 MEQ/L (3.5-5.1); SODIUM LEVEL 142 MEQ/L (136-145)
[2020-07-11 13:24] LABS: HEMATOCRIT 34.5 % (36.0-47.0); HEMOGLOBIN 10.4 g/dl (12.0-15.5); MEAN CORPUSCULAR HEMOGLOBIN 27.2 pg (27.0-33.0); MEAN CORPUSCULAR HGB CONC 30.1 g/dl (32.0-36.5); MEAN CORPUSCULAR VOLUME 90.3 fl (80.0-96.0); PLATELET COUNT, AUTOMATED 520 10^3/uL (150-450); RED BLOOD COUNT 3.82 10^6/uL (4.00-5.40); WHITE BLOOD COUNT 7.3 10^3/uL (4.0-10.0)
== END ==
LOC: M PLALAB 10:33
PROVIDERS: ATTEND Urology
DX: C64.9 Malignant neoplasm of unspecified kidney, except renal pelvis (principal)

== ENCOUNTER → 2020-10-11 | Outpatient (CLI) | payer MEDICARE, OTHER ==
[2020-10-11 13:01] LABS: HEMATOCRIT 38.9 % (36.0-47.0); HEMOGLOBIN 11.5 g/dl (12.0-15.5); MEAN CORPUSCULAR HGB CONC 29.6 g/dl (32.0-36.5); PLATELET COUNT, AUTOMATED 316 10^3/uL (150-450); RED BLOOD COUNT 4.42 10^6/uL (4.00-5.40); WHITE BLOOD COUNT 7.3 10^3/uL (4.0-10.0)
[2020-10-11 13:12] LABS: BILIRUBIN,TOTAL 0.2 MG/DL (0.2-1.0); CALCIUM LEVEL 9.8 MG/DL (8.8-10.2); CHOLESTEROL RISK RATIO 4.754 (<5); CREATININE FOR GFR 1.03 MG/DL (0.55-1.30); GLOMERULAR FILTRATION RATE 55.2 (>39); POTASSIUM SERUM 4.6 MEQ/L (3.5-5.1); TOTAL PROTEIN 6.9 GM/DL (6.4-8.2)
[2020-10-11 13:17] LABS: TOTAL 25(OH) VITAMIN D 33.8 NG/ML (30.0-100.0)
== END ==
LOC: M PLALAB 10:39
PROVIDERS: ATTEND Family Medicine
DX: M89.9 Disorder of bone, unspecified (principal)

== ENCOUNTER → 2020-10-11 | Outpatient (CLI) | payer MEDICARE, OTHER ==
--- NOTE | 2020-10-11 13:31 | REPMRS ---
Patient History The patient states she has not had a clinical breast exam in over a year. Family history of colorectal cancer at age 73 in mother, colorectal cancer at age 92 in paternal grandfather, colorectal cancer at age 67 in father. Benign radio exam breast specimen of the left breast, August 12, 2013. Benign localization of breast nodule of the left breast, August 12, 2013. Benign excisional biopsy of the left breast, 1993. Took hormonal contraceptives for 7 years. Digital Woman Screen Mammo: October 11, 2020 - Exam #: [id number] Bilateral CC and MLO view(s) were taken. Technologist: Ginny Root, Technologist Prior study comparison: November 06, 2018, bilateral digital mammo screening bilat, performed at [facility]. February 28, 2017, bilateral digital mammo screening bilat, performed at [facility]. November 08, 2015, bilateral digital mammo screening bilat, performed at [facility]. FINDINGS: There are scattered fibroglandular densities. The Volpara volumetric breast density category is:B. There has been no change in the appearance of the mammogram from the prior studies. There is a mild amount of scattered fibroglandular density which is fairly symmetric. There is no interval development of dominant mass, architectural distortion, or grouped microcalcification suggestive of malignancy. 3-D tomosynthesis shows no additional findings. Assessment: BI-RADS/ACR category 1 mammogram. Negative Mammogram. Recommendation Routine screening mammogram of both breasts in 1 year (for women over age 40). This patient's [facility] Lifetime Breast Cancer Risk is estimated at 1.9 %. This mammogram was interpreted with the aid of an FDA-approved computer-aided dectection system. Electronically Signed By: Jd Camara MD 10/11/20 1969
== END ==
LOC: M WHC 09:53
PROVIDERS: ATTEND Family Medicine
DX: Z12.31 Encounter for screening mammogram for malignant neoplasm of breast (principal); M89.9 Disorder of bone, unspecified; Z80.0 Family history of malignant neoplasm of digestive organs; Z86.018 Personal history of other benign neoplasm; Z92.0 Personal history of contraception; Z79.899 Other long term (current) drug therapy

== ENCOUNTER → 2021-02-28 | Outpatient (CLI) | payer MEDICARE, OTHER ==
[~2021-02-28] MED LIST changes: +ISOVUE-370 76% 100ML VIAL As Ordered ONE
--- NOTE | 2021-02-28 17:32 | REP ---
INDICATION: RENAL CELL CANCER COMPARISON: 07/31/2020. TECHNIQUE: CT Scan of the abdomen was performed with and without intravenous administration of 100 cc of Isovue 370, without oral contrast. Sagittal and coronal reconstruction images are performed. FINDINGS: Lung bases: There are mild bibasilar fibrotic changes. Liver: Normal Gallbladder: Unremarkable. Spleen: Normal. Adrenals: Normal. Pancreas: Normal. Kidneys: There is a new postsurgical defect of the lateral right kidney.. Exophytic cystic structure of the left kidney is unchanged. There is no new renal mass. Small and large bowel: Unremarkable. Free fluid: None. Abdominal aorta: No aneurysm or dissection. Adenopathy: None. Osseous structures: There are degenerative changes of the spine without compression deformity.. IMPRESSION: There has been resection of the previously noted right renal mass. Dominant cystic structure left kidney is again noted unchanged. No new mass or adenopathy. <Electronically signed by Alfredo Whitehead > 02/28/21 [id number]
== END ==
LOC: M RAD 16:35
PROVIDERS: ATTEND Nurse Practitioner Family
DX: C64.9 Malignant neoplasm of unspecified kidney, except renal pelvis (principal)
CPT/HCPCS: 74170; Q9967

== ENCOUNTER → 2021-09-18 | Outpatient (CLI) | payer MEDICARE, OTHER ==
[~2021-09-18] MED LIST changes: -ISOVUE-370 76% 100ML VIAL As Ordered ONE
[2021-09-18 11:47] LABS: HEMATOCRIT 41.9 % (36.0-47.0); HEMOGLOBIN 13.6 g/dl (12.0-15.5); MEAN CORPUSCULAR HEMOGLOBIN 30.9 pg (27.0-33.0); MEAN CORPUSCULAR HGB CONC 32.5 g/dl (32.0-36.5); MEAN CORPUSCULAR VOLUME 95.2 fl (80.0-96.0); PLATELET COUNT, AUTOMATED 224 10^3/uL (150-450); WHITE BLOOD COUNT 7.6 10^3/uL (4.0-10.0)
[2021-09-18 13:07] LABS: ALBUMIN 3.7 GM/DL (3.2-5.2); BILIRUBIN,TOTAL 0.3 MG/DL (0.2-1.0); CALCIUM LEVEL 9.9 MG/DL (8.8-10.2); CHOLESTEROL RISK RATIO 2.86 (<5); CREATININE FOR GFR 1.16 MG/DL (0.55-1.30); POTASSIUM SERUM 4.6 MEQ/L (3.5-5.1); TOTAL PROTEIN 6.4 GM/DL (6.4-8.2)
[2021-09-18 14:04] LABS: TOTAL 25(OH) VITAMIN D 53.4 NG/ML (30.0-100.0)
== END ==
LOC: M PLALAB 09:31
PROVIDERS: ATTEND Family Medicine
DX: Z00.00 Encounter for general adult medical examination without abnormal findings (principal); M89.00 Algoneurodystrophy, unspecified site; Z79.899 Other long term (current) drug therapy

== ENCOUNTER → 2022-01-30 | Outpatient (CLI) | payer MEDICARE ==
[2022-01-30 13:17] LABS: ALBUMIN 3.9 GM/DL (3.2-5.2); ALT/SGPT 43 U/L (12-78); BILIRUBIN,DIRECT 0.2 MG/DL (0.0-0.2); BILIRUBIN,TOTAL 0.5 MG/DL (0.2-1.0); FERRITIN 22 NG/ML (8-252); IRON (FE) 89 UG/DL (50-170); PERCENT SATURATION 25.9 % (13.2-45.0); TOTAL IRON BINDING CAPACITY 343 UG/DL (250-450); TOTAL PROTEIN 6.4 GM/DL (6.4-8.2)
[2022-01-30 13:36] LABS: HEPATITIS B SURFACE ANTIGEN NEGATIVE (NEGATIVE)
[2022-01-30 14:03] LABS: HEPATITIS C VIRUS ABY INDEX 0.2 INDEX (<0.8)
[2022-01-30 14:05] LABS: HEPATITIS B CORE ANTIBODY IGM NEGATIVE (NEGATIVE)
== END ==
LOC: M WUC 10:03
PROVIDERS: ATTEND Family Medicine
DX: R74.02 Elevation of levels of lactic acid dehydrogenase [LDH] (principal); Z79.899 Other long term (current) drug therapy

== ENCOUNTER → 2022-02-18 | Outpatient (CLI) | payer MEDICARE ==
[2022-02-18 13:04] LABS: CALCIUM LEVEL 9.6 MG/DL (8.8-10.2); CREATININE FOR GFR 1.06 MG/DL (0.55-1.30); GLOMERULAR FILTRATION RATE 53.2 (>39); POTASSIUM SERUM 4.3 MEQ/L (3.5-5.1)
== END ==
LOC: M WUC 09:25
PROVIDERS: ATTEND Physician Assistant
DX: C64.9 Malignant neoplasm of unspecified kidney, except renal pelvis (principal)

== ENCOUNTER → 2022-02-25 | Outpatient (CLI) | payer MEDICARE ==
[~2022-02-25] MED LIST changes: +ISOVUE-370 76% 100ML VIAL As Ordered ONE
== END ==
LOC: M RAD 13:39
PROVIDERS: ATTEND Physician Assistant
DX: C64.9 Malignant neoplasm of unspecified kidney, except renal pelvis (principal)
CPT/HCPCS: 74170; Q9967

== ENCOUNTER → 2022-09-23 | Outpatient (CLI) | payer MEDICARE, OTHER ==
[~2022-09-23] MED LIST changes: -ISOVUE-370 76% 100ML VIAL As Ordered ONE
[2022-09-23 17:29] LABS: BASO % 0.5 % (0.0-1.0); EOS # 0.1 10^3/uL (0.0-0.5); EOS % 1.4 % (0.0-3.0); HEMATOCRIT 43.3 % (36.0-47.0); HEMOGLOBIN 13.6 g/dl (12.0-15.5); LYMPH # 3.1 10^3/uL (1.5-5.0); LYMPH % 38.4 % (24.0-44.0); MEAN CORPUSCULAR HEMOGLOBIN 31.1 pg (27.0-33.0); MEAN CORPUSCULAR HGB CONC 31.4 g/dl (32.0-36.5); MEAN CORPUSCULAR VOLUME 99.1 fl (80.0-96.0); MONO # 0.5 10^3/uL (0.0-0.8); MONO % 6.6 % (2.0-8.0); NEUTROPHILS # 4.3 10^3/uL (1.5-8.5); PLATELET COUNT, AUTOMATED 259 10^3/uL (150-450); RED BLOOD COUNT 4.37 10^6/uL (4.00-5.40); WHITE BLOOD COUNT 8.1 10^3/uL (4.0-10.0)
[2022-09-23 17:53] LABS: POTASSIUM SERUM 4.5 MMOL/L (3.5-5.1)
[2022-09-23 17:59] LABS: BILIRUBIN,TOTAL 0.3 MG/DL (0.3-1.2); CALCIUM LEVEL 9.8 MG/DL (8.3-10.6); TOTAL 25(OH) VITAMIN D 46.8 NG/ML (20.0-100.0)
[2022-09-23 18:00] LABS: TOTAL PROTEIN 6.5 G/DL (5.7-8.2)
[2022-09-23 18:01] LABS: CHOLESTEROL RISK RATIO 2.46 (<5); CREATININE FOR GFR 1.12 MG/DL (0.55-1.30); GLOMERULAR FILTRATION RATE 49.8 (>32); HDL CHOLESTEROL 53.1 MG/DL (>40); LDL CHOLESTEROL 56.5 MG/DL (<100)
== END ==
LOC: M WUC 10:47
PROVIDERS: ATTEND Family Medicine
DX: Z00.00 Encounter for general adult medical examination without abnormal findings (principal); M89.9 Disorder of bone, unspecified; Z79.899 Other long term (current) drug therapy

== ENCOUNTER → 2022-11-18 | Outpatient (REF) | payer MEDICARE, OTHER | LOC: M SFHCDERM 13:52 | PROVIDERS: ATTEND Nurse Practitioner Family | DX: D48.9 Neoplasm of uncertain behavior, unspecified (principal) ==

== ENCOUNTER → 2023-02-28 | Outpatient (CLI) | payer MEDICARE, OTHER ==
[2023-02-28 13:03] LABS: CALCIUM LEVEL 9.5 MG/DL (8.3-10.6); CREATININE FOR GFR 1.02 MG/DL (0.55-1.30); GLOMERULAR FILTRATION RATE 55.5 (>32); POTASSIUM SERUM 4.3 MMOL/L (3.5-5.1)
== END ==
LOC: M WUC 09:05
PROVIDERS: ATTEND Physician Assistant
DX: C64.9 Malignant neoplasm of unspecified kidney, except renal pelvis (principal)

== ENCOUNTER → 2023-03-07 | Outpatient (CLI) | payer MEDICARE, OTHER ==
[~2023-03-07] MED LIST changes: +ISOVUE-370 76% 100ML VIAL As Ordered ONE
== END ==
LOC: M RAD 08:21
PROVIDERS: ATTEND Physician Assistant
DX: Z85.528 Personal history of other malignant neoplasm of kidney (principal)
CPT/HCPCS: 74170; Q9967

== ENCOUNTER → 2024-03-11 | Outpatient (REF) | payer MEDICARE, OTHER ==
[~2024-03-11] MED LIST changes: -ISOVUE-370 76% 100ML VIAL As Ordered ONE
[2024-03-11 18:17] LABS: CALCIUM LEVEL 10.2 MG/DL (8.3-10.6); CREATININE FOR GFR 1.02 MG/DL (0.55-1.30); GLOMERULAR FILTRATION RATE 55.4 (>32); POTASSIUM SERUM 4.3 MMOL/L (3.5-5.1)
== END ==
LOC: M LABWUC 16:36
PROVIDERS: ATTEND Physician Assistant
DX: Z85.528 Personal history of other malignant neoplasm of kidney (principal)

== ENCOUNTER → 2024-03-12 | Outpatient (CLI) | payer MEDICARE, OTHER ==
[~2024-03-12] MED LIST changes: +ISOVUE-370 76% 100ML VIAL ONE
== END ==
LOC: M PLAIMG 08:50
PROVIDERS: ATTEND Physician Assistant
DX: N28.1 Cyst of kidney, acquired (principal); Z85.528 Personal history of other malignant neoplasm of kidney
CPT/HCPCS: 74170; Q9967

== ENCOUNTER → 2024-07-21 | Outpatient (CLI) | payer MEDICARE, OTHER ==
[~2024-07-21] MED LIST changes: -ISOVUE-370 76% 100ML VIAL ONE
[2024-07-21 17:50] LABS: BASO # 0.1 10^3/uL (0.0-0.2); BASO % 0.5 % (0.0-1.0); EOS # 0.1 10^3/uL (0.0-0.5); EOS % 1.5 % (0.0-3.0); HEMATOCRIT 42.2 % (36.0-47.0); HEMOGLOBIN 13.6 g/dl (12.0-15.5); LYMPH # 3.2 10^3/uL (1.5-5.0); LYMPH % 34.7 % (24.0-44.0); MEAN CORPUSCULAR HEMOGLOBIN 31.8 pg (27.0-33.0); MEAN CORPUSCULAR HGB CONC 32.2 g/dl (32.0-36.5); MEAN CORPUSCULAR VOLUME 98.6 fl (80.0-96.0); MONO # 0.5 10^3/uL (0.0-0.8); MONO % 5.7 % (2.0-8.0); NEUTROPHILS # 5.4 10^3/uL (1.5-8.5); NEUTROPHILS % 57.3 % (36.0-66.0); PLATELET COUNT, AUTOMATED 247 10^3/uL (150-450); RED BLOOD COUNT 4.28 10^6/uL (4.00-5.40); WHITE BLOOD COUNT 9.3 10^3/uL (4.0-10.0)
[2024-07-21 18:15] LABS: PERCENT SATURATION 20.4 % (13.2-45.0)
[2024-07-21 18:17] LABS: FERRITIN 28.7 NG/ML (7.3-270.7)
== END ==
LOC: M WUC 12:49
PROVIDERS: ATTEND Orthopaedic Surgery Adult Reconstructive Orthopaedic Surgery
DX: Z01.818 Encounter for other preprocedural examination (principal); M25.562 Pain in left knee; M17.12 Unilateral primary osteoarthritis, left knee

== ENCOUNTER → 2024-08-23 | Outpatient (CLI) | payer MEDICARE, OTHER ==
[2024-08-23 12:41] LABS: INR 0.86; PARTIAL THROMBOPLASTIN TIME 22.9 SECONDS (24.8-34.2)
[2024-08-23 13:42] LABS: BASO # 0.1 10^3/uL (0.0-0.2); BASO % 0.6 % (0.0-1.0); EOS # 0.2 10^3/uL (0.0-0.5); EOS % 2.7 % (0.0-3.0); HEMATOCRIT 40.9 % (36.0-47.0); HEMOGLOBIN 12.9 g/dl (12.0-15.5); LYMPH # 3.7 10^3/uL (1.5-5.0); LYMPH % 47.2 % (24.0-44.0); MEAN CORPUSCULAR HEMOGLOBIN 31.6 pg (27.0-33.0); MEAN CORPUSCULAR HGB CONC 31.5 g/dl (32.0-36.5); MEAN CORPUSCULAR VOLUME 100.2 fl (80.0-96.0); MONO # 0.5 10^3/uL (0.0-0.8); MONO % 6.7 % (2.0-8.0); NEUTROPHILS # 3.3 10^3/uL (1.5-8.5); NEUTROPHILS % 42.5 % (36.0-66.0); PLATELET COUNT, AUTOMATED 243 10^3/uL (150-450); RED BLOOD COUNT 4.08 10^6/uL (4.00-5.40); WHITE BLOOD COUNT 7.8 10^3/uL (4.0-10.0)
[2024-08-23 14:16] LABS: ALBUMIN 3.7 G/DL (3.2-5.2); ALKALINE PHOSPHATASE 72 U/L (35-104); ALT/SGPT 18 U/L (7.0-40); AST/SGOT 17 U/L (<34); BILIRUBIN,TOTAL 0.4 MG/DL (0.3-1.2); BLOOD UREA NITROGEN 21 MG/DL (9-23); CALCIUM LEVEL 9.5 MG/DL (8.3-10.6); CARBON DIOXIDE LEVEL 26 MMOL/L (20-31); CHLORIDE LEVEL 113 MMOL/L (98-107); CREATININE FOR GFR 0.93 MG/DL (0.55-1.30); GLOMERULAR FILTRATION RATE > 60.0 (>32); GLUCOSE, FASTING 86 MG/DL (74-106); POTASSIUM SERUM 4.6 MMOL/L (3.5-5.1); SODIUM LEVEL 144 MMOL/L (136-145); TOTAL PROTEIN 6.2 G/DL (5.7-8.2)
== END ==
LOC: M WUC 10:44
PROVIDERS: ATTEND Family Medicine
DX: Z01.818 Encounter for other preprocedural examination (principal)

== ENCOUNTER → 2025-01-18 | Outpatient (REF) | payer MEDICARE, OTHER | LOC: M SFHCDERM 08:30 | PROVIDERS: ATTEND Nurse Practitioner Family | DX: D49.2 Neoplasm of unspecified behavior of bone, soft tissue, and skin (principal) ==

== ENCOUNTER → 2025-02-24 | Outpatient (CLI) | payer MEDICARE, OTHER ==
[2025-02-24 13:15] LABS: CALCIUM LEVEL 9.9 MG/DL (8.3-10.6); CREATININE FOR GFR 0.98 MG/DL (0.55-1.30); GLOMERULAR FILTRATION RATE 57.6 (>32); POTASSIUM SERUM 4.6 MMOL/L (3.5-5.1)
== END ==
LOC: M WUC 09:02
PROVIDERS: ATTEND Physician Assistant
DX: Z85.528 Personal history of other malignant neoplasm of kidney (principal)

== ENCOUNTER → 2025-02-25 | Outpatient (CLI) | payer MEDICARE, OTHER ==
[~2025-02-25] MED LIST changes: +ISOVUE-370 76% 100ML VIAL As Ordered ONE
== END ==
LOC: M RAD 12:44
PROVIDERS: ATTEND Physician Assistant
DX: N28.1 Cyst of kidney, acquired (principal); Z85.528 Personal history of other malignant neoplasm of kidney; Z90.5 Acquired absence of kidney
CPT/HCPCS: 74170; Q9967

== ENCOUNTER → 2025-06-20 | Outpatient (CLI) | payer MEDICARE, OTHER ==
[~2025-06-20] MED LIST changes: -ISOVUE-370 76% 100ML VIAL As Ordered ONE
== END ==
LOC: M WHC 08:44
PROVIDERS: ATTEND Family Medicine
DX: M81.0 Age-related osteoporosis without current pathological fracture (principal)

== ENCOUNTER → 2025-06-29 | Outpatient (CLI) | payer MEDICARE, OTHER | LOC: M WHC 14:53 | PROVIDERS: ATTEND Family Medicine | DX: Z12.31 Encounter for screening mammogram for malignant neoplasm of breast (principal); R92.323 Mammographic fibroglandular density, bilateral breasts ==